=== PATIENT | female | born 1970 | race Two or more races ===

== ENCOUNTER 2019-03-29 11:40 | Emergency (ER) | payer OTHER ==
[~2019-03-29] VITALS: Ht 154.9 cm; Wt 86.2 kg
[2019-03-29 13:07] LABS: Basophils # (auto) 0 uL; Basophils % (auto) 0.8 % (0.0-2.0); Eosinophils # (auto) 0 uL; Eosinophils % (auto) 0.9 % (0.0-7.0); Hematocrit 39.4 % (36.0-46.0); Lymphocytes # (auto) 0.9 uL; Lymphocytes % (auto) 18.8 % (10.0-50.0); Mean Corpuscular Hemoglobin 30.3 pg (28.0-32.0); Mean Corpuscular Hgb Conc. 33.1 g/dL (32.0-36.0); Mean Corpuscular Volume 91.5 fL (80.0-100.0); Monocytes # (auto) 0.4 uL; Monocytes % (auto) 8.8 % (0.0-12.0); Neutrophils # (auto) 3.3 uL; Neutrophils % (auto) 70.7 % (37.0-80.0); Nucleated Red Blood Cells % 0.1 %; Platelet Count (auto) 251 10^3/uL (140-450); Red Cell Distribution Width 14.6 % (11.8-14.3); White Blood Cell 4.7 10^3/uL (4.4-10.8)
[2019-03-29 13:35] LABS: Albumin 3.6 g/dL (3.4-5.0); Calcium 9.2 mg/dL (8.5-10.1); Potassium 3.5 mmol/L (3.5-5.1)
[2019-03-29 13:39] LABS: BUN/Creatinine Ratio 20.5; Bilirubin, Total 0.3 mg/dL (0.2-1.0); Total Protein 8.7 g/dL (6.4-8.2)
[2019-03-29] MEDS ORDERED: HYDROcodone-ACET 10/325MG TAB PO ONE (13:45)
[2019-03-29 15:30] VITALS: BP 135/72
== END 2019-03-29 15:37 | disposition home or self-care (01) ==
LOC: ER 11:40 → EDBD 11:40 → ER 15:37
DX: R51 Headache (principal); R42 Dizziness and giddiness
CPT/HCPCS: 36415; 70450; 80053; 85025

== ENCOUNTER 2019-03-29 16:54 | Emergency (ER) | payer OTHER ==
[~2019-03-29] VITALS: Ht 154.9 cm; Wt 87.1 kg
[2019-03-29 21:30] VITALS: BP 141/84
== END 2019-03-29 22:33 | disposition home or self-care (01) ==
LOC: ER 16:54 → EDUNIT# 16:54 → EDBD 16:54 → ER 22:33
DX: F43.0 Acute stress reaction (principal); K08.89 Other specified disorders of teeth and supporting structures; R42 Dizziness and giddiness; Z88.0 Allergy status to penicillin; Z88.1 Allergy status to other antibiotic agents